=== PATIENT | female | born 1960 | race Two or more races ===

== ENCOUNTER 2020-08-06 11:00 | Day surgery (SDC) | payer OTHER ==
[~2020-08-06 11:00] MED LIST: FORTAMET1000 MG PO; TRULICITY0.75 MG/0. SQ; VASOTEC10 MG PO
== END 2020-08-06 19:55 | disposition home or self-care (01) ==
LOC: CIR.AMB 11:00
PROVIDERS: ATTEND Obstetrics & Gynecology
DX: N95.0 Postmenopausal bleeding (principal); Z20.828 Contact with and (suspected) exposure to other viral communicable diseases